=== PATIENT | female | born 1970 | race Caucasian/White ===

== ENCOUNTER 2022-05-04 05:10 | Day surgery (SDC) | payer OTHER ==
[2022-05-02 09:12] VITALS: BMI 25.7
[2022-05-04 08:58] VITALS: TEMP 97.8
[2022-05-04 09:45] VITALS: BP 126/81; PULSE 68; RESP 16
== END 2022-05-04 09:53 | disposition home or self-care (01) ==
LOC: JASU-ENDO 05:10
PROVIDERS: ATTEND Internal Medicine Gastroenterology
PROC: 0DBL8ZX Excision of Transverse Colon, Via Natural or Artificial Opening Endoscopic, Diagnostic (ICD-10-PCS; 2022-05-04)
PROC: 0DBN8ZX Excision of Sigmoid Colon, Via Natural or Artificial Opening Endoscopic, Diagnostic (ICD-10-PCS; 2022-05-04)
PROC: 0DBP8ZX Excision of Rectum, Via Natural or Artificial Opening Endoscopic, Diagnostic (ICD-10-PCS; 2022-05-04)
PROC: 0DBF8ZX Excision of Right Large Intestine, Via Natural or Artificial Opening Endoscopic, Diagnostic (ICD-10-PCS; 2022-05-04)
PROC: 0DBM8ZX Excision of Descending Colon, Via Natural or Artificial Opening Endoscopic, Diagnostic (ICD-10-PCS; 2022-05-04)
PROC: 0DB98ZX Excision of Duodenum, Via Natural or Artificial Opening Endoscopic, Diagnostic (ICD-10-PCS; 2022-05-04)
PROC: 0DB78ZX Excision of Stomach, Pylorus, Via Natural or Artificial Opening Endoscopic, Diagnostic (ICD-10-PCS; 2022-05-04)
PROC: 0DBH8ZX Excision of Cecum, Via Natural or Artificial Opening Endoscopic, Diagnostic (ICD-10-PCS; principal; 2022-05-04 08:00)
DX: Z12.11 Encounter for screening for malignant neoplasm of colon (principal); K51.80 Other ulcerative colitis without complications; K64.8 Other hemorrhoids; D50.9 Iron deficiency anemia, unspecified; K29.50 Unspecified chronic gastritis without bleeding
CPT/HCPCS: 81025; 88305-TC; 88342-TC